=== PATIENT | male | born 1985 | race African-American/Black ===

== ENCOUNTER 2017-02-11 13:23 | Emergency (ER) | payer OTHER ==
[~2017-02-11] VITALS: Ht 182.9 cm; Wt 102.0 kg
[~2017-02-11 13:23] MED LIST: BACT800T5 PO; [UNRECOGNIZED DRUG - CODE] PO
[2017-02-11 13:45] VITALS: BP 136/87; PULSE 78; RESP 13; TEMP 97.7; O2SAT 92
[2017-02-11 13:49] VITALS: O2SAT 97
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
[2017-02-11] MEDS ORDERED: SODIUM CHLORIDE 0.9% FLUSH 10 ML FLUSH IVF PRN (14:00)
[2017-02-11 14:10] LABS: AUTOMATED NEUTROPHIL # 4.4 TH/MM3 (1.8-7.7); BASOPHIL # 0.1 TH/MM3 (0-0.2); BASOPHIL % 0.8 % (0.0-2.0); EOSINOPHIL # 0.3 TH/MM3 (0-0.4); EOSINOPHIL % 3.7 % (0.0-4.0); HEMATOCRIT 43.4 % (39.0-51.0); HEMO FLAGS DIFF FINAL; LYMPHOCYTE # 1.8 TH/MM3 (1.0-4.8); MEAN CELL VOLUME 89.9 FL (80.0-100.0); MEAN CORPUSCULAR HEMOGLOBIN 29.6 PG (27.0-34.0); MEAN CORPUSCULAR HGB CONC 32.9 % (32.0-36.0); MONO % 6.8 % (0.0-8.0); NEUT % 62.7 % (16.0-70.0); PLATELET COUNT 230 TH/MM3 (150-450); RED BLOOD COUNT 4.83 MIL/MM3 (4.50-5.90); RED CELL DISTRIBUTION WIDTH 13.9 % (11.6-17.2)
--- NOTE | 2017-02-11 14:14 | PD ---
Physical Exam Date Seen by Provider: Feb 11, 2017 Time Seen by Provider: 14:12 Data Data Last Documented VS Vital Signs Date Time Temp Pulse Resp B/P Pulse Ox O2 Delivery O2 Flow Rate FiO2 02/11/17 13:49 94 Room Air 02/11/17 13:45 97.7 78 13 136/87 Orders Basic Metabolic Panel (Bmp) (02/11/17 13:46) Complete Blood Count With Diff (02/11/17 13:46) Prothrombin Time / Inr (Pt) (02/11/17 13:46) Act Partial Throm Time (Ptt) (02/11/17 13:46) Alcohol (Ethanol) (02/11/17 13:46) Chest, Single Ap (02/11/17 13:46) Ct Brain W/O Iv Contrast(Rout) (02/11/17 13:46) Ct Cerv Spine W/O Contrast (02/11/17 13:46) Ct Abd/Pel W Iv Contrast(Rout) (02/11/17 13:46) Ct Thorax/ Chest W Iv Contrast (02/11/17 13:46) Ct Facial Bones W/O Iv Cont (02/11/17 13:46) Iv Access Insert/Monitor (02/11/17 13:46) Ecg Monitoring (02/11/17 13:46) Oximetry (02/11/17 13:46) Oxygen Administration (02/11/17 13:46) Sodium Chloride 0.9% Flush (Ns Flush) (02/11/17 14:00) Lidocaine 1% Inj (50 Ml) (Xylocaine 1% I (02/11/17 14:30) Drug Screen, Random Urine (02/11/17 14:47) Iohexol 350 Inj (Omnipaque 350 Inj) (02/11/17 15:07) Labs Laboratory Tests Test 02/11/17 13:50 White Blood Count 7.0 TH/MM3 Red Blood Count 4.83 MIL/MM3 Hemoglobin 14.3 GM/DL Hematocrit 43.4 % Mean Corpuscular Volume 89.9 FL Mean Corpuscular Hemoglobin 29.6 PG Mean Corpuscular Hemoglobin 32.9 % Concent Red Cell Distribution Width 13.9 % Platelet Count 230 TH/MM3 Mean Platelet Volume 8.5 FL Neutrophils (%) (Auto) 62.7 % Lymphocytes (%) (Auto) 26.0 % Monocytes (%) (Auto) 6.8 % Eosinophils (%) (Auto) 3.7 % Basophils (%) (Auto) 0.8 % Neutrophils # (Auto) 4.4 TH/MM3 Lymphocytes # (Auto) 1.8 TH/MM3 Monocytes # (Auto) 0.5 TH/MM3 Eosinophils # (Auto) 0.3 TH/MM3 Basophils # (Auto) 0.1 TH/MM3 CBC Comment DIFF FINAL Differential Comment Prothrombin Time 10.8 SEC Prothromb Time International 1.0 RATIO Ratio Activated Partial 27.7 SEC Thromboplast Time Sodium Level 140 MEQ/L Potassium Level 3.7 MEQ/L Chloride Level 103 MEQ/L Carbon Dioxide Level 25.4 MEQ/L Anion Gap 12 MEQ/L Blood Urea Nitrogen 11 MG/DL Creatinine 1.05 MG/DL Estimat Glomerular Filtration 99 ML/MIN Rate Random Glucose 98 MG/DL Calcium Level 8.8 MG/DL Ethyl Alcohol Level 50 MG/DL MDM Supervised Visit with GUIDO: No Narrative Course I was asked to evaluate this patient's facial laceration. Dr. Amador initially evaluated this patient. Please see his note for full details. On my exam there is a stellate laceration lateral to the left eye totaling ~3 cm in length. Laceration repair was performed. Please see my procedure note for details. Dr. Amador retains care of this patient. Please see his note for disposition. Procedures Procedure Narrative LACERATION LOCATION: Face, lateral to the left eye LENGTH: 3 cm stellate NUMBER OF STITCHES/SHARON: 8 REPAIR: The area of the laceration was prepped with Betadine and sterilely draped. The laceration was infiltrated with 1% lidocaine. The wound was copiously irrigated and explored without evidence of foreign body, tendon injury or neurovascular injury. The wound was closed using 4-0 Prolene. This was a single layer repair. The patient was advised to keep the wound clean and dry. Patient tolerated the procedure well. Fallon Cole Feb 11, 2017 14:13
[2017-02-11] MEDS ORDERED: LIDOCAINE 1%/EPINEPHrine 1:100,000 SOLN 20 ML VIAL INFIL ONE (14:15)
[2017-02-11 14:21] LABS: APTT (PATIENT) 27.7 SEC (24.3-30.1); PROTHROMBIN TIME - PATIENT 10.8 SEC (9.8-11.6)
[2017-02-11 14:22] LABS: BICARBONATE 25.4 MEQ/L (21.0-32.0); POTASSIUM 3.7 MEQ/L (3.5-5.1)
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
[2017-02-11] MEDS ORDERED: LIDOCAINE HCL 1% 50 ML VIAL INFIL ONE (14:30)
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
[2017-02-11] MEDS ORDERED: IOHEXOL 350 MG/ML 10 ML VIAL (for RAD DIAG) IV ONE (15:07)
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
[2017-02-11] MEDS ORDERED: DIPHTH/TETANUS/ACEL PERTUSSIS (BOOSTER) 0.5 ML VIAL/PFS IM ONE (16:15)
[2017-02-11 16:16] LABS: AMPHETAMINE, URINE NEG (NEG); BARBITURATES, URINE NEG (NEG); COCAINE, URINE POS (NEG)
== END 2017-02-11 17:01 | disposition home or self-care (01) ==
LOC: NEPC 13:23
DX: S06.0X9A Concussion with loss of consciousness of unspecified duration, initial encounter (principal); S01.81XA Laceration without foreign body of other part of head, initial encounter; R06.02 Shortness of breath; V49.9XXA Car occupant (driver) (passenger) injured in unspecified traffic accident, initial encounter; Z23 Encounter for immunization
CPT/HCPCS: 12013; 70450; 70486; 71010; 71260; 72125; 74177; 80048; 80307; 85025; 85610; 85730; 90471; 90715; 99285; Q9967

== ENCOUNTER 2017-02-18 14:54 | Emergency (ER) | payer SELFPAY ==
[~2017-02-18] VITALS: Ht 182.9 cm; Wt 95.4 kg
[2017-02-18 14:56] VITALS: BP 166/90; PULSE 91; RESP 14; TEMP 98.8; O2SAT 96
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
== END 2017-02-18 16:33 | disposition home or self-care (01) ==
LOC: NEPK 14:54
DX: Z48.02 Encounter for removal of sutures (principal)
CPT/HCPCS: 99281